=== PATIENT | female | born 1965 | race Two or more races ===

== ENCOUNTER 2021-08-08 11:04 | Emergency (ER) | payer OTHER ==
[~2021-08-08] VITALS: Ht 160 cm; Wt 57.2 kg
[2021-08-08] MEDS ORDERED: ZITHROMAX TRI-500 MG PO (14:52)
== END 2021-08-08 15:00 | disposition home or self-care (01) ==
LOC: ER 11:04
DX: R53.81 Other malaise (principal); R51.9 Headache, unspecified; Z03.818 Encounter for observation for suspected exposure to other biological agents ruled out

== ENCOUNTER 2021-10-09 09:04 | Emergency (ER) | payer OTHER ==
[~2021-10-09] VITALS: Ht 160 cm; Wt 54.4 kg
[~2021-10-09 09:04] MED LIST: ZITHROMAX TRI-500 MG PO
== END 2021-10-09 11:11 | disposition home or self-care (01) ==
LOC: ER 09:04
DX: S92.491A Other fracture of right great toe, initial encounter for closed fracture (principal); X58.XXXA Exposure to other specified factors, initial encounter; Y93.89 Activity, other specified; Y92.89 Other specified places as the place of occurrence of the external cause; Y99.8 Other external cause status

== ENCOUNTER → 2025-05-02 | Emergency (ER) | payer OTHER ==
[~2025-05-02] VITALS: Ht 160 cm; Wt 58.1 kg
[~2025-05-02] MED LIST changes: +CEPHALEXIN500 MG PO; +TASIGNA150 MG PO
[2025-05-02 20:16] LABS: EOS # 0.01 (0.04-0.54); EOS % 0.1 % (0.7-7.0); HEMATOCRIT 40.1 % (34.1-44.9); HEMOGLOBIN 12.5 g/dL (11.2-15.7); LYMPH # 0.58 (1.18-3.74); LYMPH % 7.8 % (19.3-53.1); MEAN CORPUSCULAR HEMOGLOBIN 25.4 pg (25.6-32.2); MONO # 0.19 (0.24-0.82); MONO % 2.5 % (4.7-12.5); NEUT # 6.33 (1.56-6.13); NEUT % 84.7 % (34.0-71.1); PLATELET COUNT 299 K/uL (163-369); RED BLOOD COUNT 4.92 M/uL (3.93-5.22); RED CELL DISTRIBUTION WIDTH 16.2 % (11.6-14.4)
[2025-05-02 20:18] LABS: BASO % 2.8 % (0.1-1.2)
[2025-05-02 20:44] LABS: COVID-19 AG NEGATIVE (NEGATIVE)
[2025-05-02 20:58] LABS: PH,URINE 5.5 (5.0-8.0); URINE APPEARANCE Cloudy; URINE BILIRRUBIN Negative (NEGATIVE); URINE BLOOD Negative; URINE COLOR Yellow; URINE GLUCOSE Negative (NEGATIVE); URINE KETONE Negative (NEGATIVE); URINE LEUKOCYTE Trace; URINE NITRATE Negative; URINE PROTEIN 30 (NEGATIVE); URINE UROBILINOGEN 0.2 E.U./dl
[2025-05-02 21:03] LABS: ALBUMIN 4.1 gm/dL (3.4-5.0); BILIRUBIN TOTAL 0.61 mg/dL (0.3-1.2); CREATININE SERUM 0.82 mg/dL (0.55-1.02); GFR 71.85; GLOBULINA 3.8 G/DL (2.4-3.5); POTASSIUM 3.93 mEq/L (3.5-5.1); TOTAL PROTEIN 7.9 gm/dL (6.4-8.2)
[2025-05-02 21:06] LABS: URINE BACTERIA 5247.1 uL (0.0-1933); URINE CAST 6.33 uL (0.0-1.40); URINE EPITHELIAL CELLS 145.6 uL (0.0-38.8); URINE RBC 76.5 uL (0.0-20.8); URINE WBC 83.2 uL (0.0-23.2)
[2025-05-02 21:15] LABS: INFLUENZA A AG NEGATIVE (NEGATIVE); INFLUENZA B AG NEGATIVE (NEGATIVE)
[2025-05-02 21:43] LABS: URINE MUCUS MODERATE; URINE YEAST NEGATIVE /hpf
== END | disposition home or self-care (01) ==
LOC: ER 16:47
PROVIDERS: General Practice
DX: R51.9 Headache, unspecified (principal); R53.83 Other fatigue; Z85.6 Personal history of leukemia; Z20.822 Contact with and (suspected) exposure to COVID-19